=== PATIENT | female | born 1975 | race Two or more races ===

== ENCOUNTER → 2018-04-04 | Day surgery (SDC) | payer OTHER ==
[2018-03-31 09:56] LABS: Urine WBC None Seen /hpf (0 - 5)
[2018-03-31 10:06] LABS: Basophils # (auto) 0 uL; Basophils % (auto) 0.9 % (0.0-2.0); Eosinophils # (auto) 0.1 uL; Eosinophils % (auto) 1.6 % (0.0-7.0); Hematocrit 39.7 % (36.0-46.0); Hemoglobin 13.8 g/dL (12.2-16.2); Lymphocytes # (auto) 1.7 uL; Lymphocytes % (auto) 42.9 % (10.0-50.0); Mean Corpuscular Hemoglobin 33.1 pg (28.0-32.0); Mean Corpuscular Hgb Conc. 34.7 g/dL (32.0-36.0); Mean Corpuscular Volume 95.5 fL (80.0-100.0); Monocytes # (auto) 0.3 uL; Monocytes % (auto) 6.9 % (0.0-12.0); Neutrophils # (auto) 1.9 uL; Neutrophils % (auto) 47.7 % (37.0-80.0); Nucleated Red Blood Cells % 0.1 %; Platelet Count (auto) 238 10^3/uL (140-450); Red Blood Cells 4.16 10^6/uL (4.0-5.20); Red Cell Distribution Width 12.5 % (11.8-14.3)
[2018-03-31 10:13] LABS: Urine Bacteria FEW /hpf (None Seen); Urine Blood Negative /uL (Negative); Urine Specific Gravity 1.011 (1.001-1.035)
[2018-03-31 10:24] LABS: Albumin 3.9 g/dL (3.4-5.0); Anion Gap 3 (5-15); Blood Urea Nitrogen 18 mg/dL (7-18); Calcium 8.5 mg/dL (8.5-10.1); Carbon Dioxide 30 mmol/L (21-32); Chloride 108 mmol/L (98-107); Glucose 89 mg/dL (74-106); Potassium 4.1 mmol/L (3.5-5.1); Sodium 141 mmol/L (136-145)
[2018-03-31 10:25] LABS: INR 0.96 (0.9-1.15); Partial Thromboplastin Time 27.6 sec (23.78-33.04); Prothrombin Time 10.3 sec (9.27-12.13)
[2018-03-31 10:27] LABS: Alanine Aminotransferase 31 U/L (13-56); Alkaline Phosphatase 77 U/L (45-117); Aspartate Aminotransferase 21 U/L (15-37); BUN/Creatinine Ratio 27.3; Bilirubin, Total 0.4 mg/dL (0.2-1.0); GFR African American > 60 mL/min; GFR Non-African American > 60 mL/min; Total Protein 7.4 g/dL (6.4-8.2)
[~2018-04-04] VITALS: Ht 157.5 cm; Wt 61.2 kg
[~2018-04-04] MED LIST: CONJ ESTROGENS 0.625MG/GM VAG CRM 30GM PV ONE; ETAN50IN5 SUBCUT; LEVO50TA7 PO; LIDOCAINE W/ EPINEPHRINE 1 % INJ 30ML ONE; TAMO20TA9 PO; ceFAZolin 1GM VL ONE; ceFAZolin 1GM/50ML 50 ML IV ONE
[2018-04-04 17:46] VITALS: BP 142/91
== END | disposition home or self-care (01) ==
LOC: SUR 10:51
PROVIDERS: ATTEND Urology
DX: N39.3 Stress incontinence (female) (male) (principal); N81.10 Cystocele, unspecified; E03.9 Hypothyroidism, unspecified; M06.9 Rheumatoid arthritis, unspecified; Z85.3 Personal history of malignant neoplasm of breast; Z79.899 Other long term (current) drug therapy; Z90.710 Acquired absence of both cervix and uterus
CPT/HCPCS: 36415; 57240; 57288; 80053; 81001; 85025; 85610; 85730; 87086; 88307; C1763; J0690; J2001